=== PATIENT | male | born 1975 | race Caucasian/White ===

== ENCOUNTER → 2021-08-14 08:33 | Outpatient (BNVA) | payer OTHER, SELFPAY | PROVIDERS: Family Provider Family Medicine; PCP Family Medicine; Visit Provider Nurse Practitioner Family | DX: N41.1 Chronic prostatitis (principal) | CPT/HCPCS: 81003; 87086 ==

== ENCOUNTER → 2021-10-15 15:11 | Outpatient (BNVA) | payer OTHER, SELFPAY | PROVIDERS: Family Provider Family Medicine; PCP Family Medicine; Visit Provider Urology | DX: N41.1 Chronic prostatitis (principal) | CPT/HCPCS: 81003 ==

== ENCOUNTER → 2022-01-28 14:40 | Outpatient (BNVA) | payer OTHER, SELFPAY | PROVIDERS: Family Provider Family Medicine; PCP Family Medicine; Visit Provider Urology | DX: N41.1 Chronic prostatitis (principal) | CPT/HCPCS: 81003 ==

== ENCOUNTER 2022-12-04 16:42 | Emergency (ER) | payer OTHER, SELFPAY ==
[2022-12-04 16:52] VITALS: BP 125/69; PULSE 79; RESP 16; TEMP 36.6; O2SAT 99; BMI 30.2
--- NOTE | 2022-12-04 17:40 | ED_ITS ---
HPI - Dizziness General: Chief Complaint: Dizziness Stated Complaint: dizziness Time Seen by Provider: 12/04/22 16:46 History of Present Illness: HPI Narrative: 47-year-old male reports around 11:00 he started having vertigo. Room spinning to the right. It stopped as long as he held still and closed his eyes. However soon as he started to move, he was at risk of having onset of severe vertigo again. As long as his eyes were closed he can do normal fine motor movements. He has had a little bit of sinus issues recently but otherwise has not been sick. No ear pain headache, or focal neurologic problems. He did take ciprofloxacin a few times last week which is a standing order for prostatitis symptoms. No other new medications. Associated symptoms: Denies chest pain, chills, headache(s), syncope or vomiting Associated neuro symptoms: Deny numbness in extremities Review of Systems General: Reports: 10 or more systems reviewed and unremarkable except in HPI and below Const: Denies: fever(s), chills or body aches ENMT: Denies: throat pain Card: Denies: chest pain, edema or syncope Resp: Denies: dyspnea or productive cough GI: Denies: abdominal pain, vomiting or diarrhea : Denies: flank pain, dysuria or urinary frequency Musc: Denies: neck pain, back pain, extremity pain or extremity swelling Skin/Breast: Denies: rash or erythema Neuro: Denies: headache(s), numbness in extremities, weakness in extremities or lack of coordination PFSH ED PFSH: Medical History Chronic prostatitis Family History Mother COPD (chronic obstructive pulmonary disease) Lung disease Father CAD (coronary artery disease) Diabetes Social History Smoking and tobacco status: former smoker Alcohol intake: current Alcohol intake frequency: few times a week Substance/Drug Use: unknown Adopted: No Caregiver/support person: No Lives independently: No Household members: spouse Marital status: Current occupational status: employed Physical Exam Const: COMMON NORMALS: no limitations, alert and well nourished EXAM LI MITATIONS: no altered mental status HENMT: COMMON NORMALS: normocephalic, atraumatic, external ears normal, EAC's normal and TM's normal bilaterally HEAD & SCALP: normocephalic and atraumatic EXTERNAL EAR: Yes external ears normal EXTERNAL AUDITORY CANAL: EAC's normal TYMPANIC MEMBRANE: TM's normal bilaterally MOUTH: no muffled voice Neck/C-Spine: COMMON NORMALS: no JVD GENERAL: Yes normal visual inspection and Yes trachea midline Resp: COMMON NORMALS: normal respiratory effort, No use of accessory muscles and clear to auscultation bilaterally AUSCULTATION: clear to auscultation bilaterally Cardio: COMMON NORMALS: no JVD, regular rate and regular rhythm RATE: regular rate RHYTHM: regular rhythm GI: COMMON NORMALS: Soft to palpation and non-tender PALPATION: Yes Soft to palpation and No Guarding due to palpation present (GI) Extremity: COMMON NORMALS: normal to inspection Neuro: COMMON NORMALS: moves all extremities, no focal motor deficits and no sensory deficits noted SENSORIUM/ORIENTATION: Yes alert SPEECH: speech normal OTHER: Patient has directional nystagmus when he looks all the way to the right with a fast beating component to the right. No other abnormalities of the extraocular movements. Pupils are equal round and reactive to light. A hints exam was performed. It was suggestive of a peripheral vertigo. No features of central vertigo Psych: COMMON NORMALS: mental status grossly normal, Normal thought process present, cooperative, normal affect and speech normal SPEECH: Yes normal speech THOUGHT PROCESS: Normal thought process present Skin: COMMON NORMALS: no rashes or lesions noted, turgor normal and no jaundice GENERAL SKIN EXAM: no rashes or lesions noted and turgor normal Course Vital Signs: Vital signs: Vital Signs Temperature 97.9 F 12/04/22 16:52 Pulse Rate 83 12/04/22 17:46 Respiratory Rate 18 12/04/22 17:46 Blood Pressure 120/77 12/04/22 17:46 Pulse Oximetry 99 12/04/22 17:46 Oxygen Delivery Me thod Room Air 12/04/22 17:46 MDM - Dizziness Medical Decision Making Patient has features of peripheral vertigo, positional. I did Pam maneuvers and patient experienced improvement after the first 1. This would be suggestive of issues in the semicircular canal/s. I ordered him scopolamine and meclizine as well as a dose of prednisone. I taught him how to do Pam maneuver and he is going to repeated in the room with his . Denies RFs for CVA including no htn, hld, smoking, dm. No features of central vertigo, infection, trauma, or metabolic emergency. Patient will be discharged with meclizine, short prednisone burst, and scopolamine patches. Patient reexamined and is doing much better. I discussed the difference between peripheral and central vertigo. We discussed how to do stroke checks at home in the event that his symptoms recur. Prescriptions have been signed. No radiology studies performed this visit Discharge Plan Discharge Patient Disposition: Home Clinical Impression: Benign paroxysmal positional vertigo Condition: Stable Prescriptions: New prednisone 20 mg tablet 20 mg PO DAILY 5 Days Qty: 10 0RF promethazine 25 mg tablet 25 mg PO Q6H PRN (Reason: nausea and vomiting, vertigo) Qty: 14 0RF scopolamine base 1 mg over 3 days patch 3 day 1 patch transdermal Q3D PRN (Reason: vertigo) Qty: 4 0RF meclizine 25 mg tablet 25 mg PO TID PRN (Reason: vertigo) Qty: 20 0RF No Action quercetin 500 mg capsule PO .PRN alprazolam 0.5 mg tablet PO hydrocortisone acetate 25 mg suppository 25 mg [place] BID Qty: 12 0RF ciprofloxacin HCl 500 mg tablet 500 mg PO BID Qty: 60 3RF Discharge Orders: Discharge ED (Routine); Ordered 12/04/22 Ordered By: Clifton Guaman Referrals: Toni Farris, [Primary Care Provider] - 4-7 days Patient Instructions: Vertigo (ED), Benign Paroxysmal Positional Vertigo (ED) Activity Restrictions/Additional Instructions: Today you have been diagnosed with: peripheral vertigo Additional information has been provided as handouts, please take the time to read and understand this information. It is very important that you follow up with a Doctor as discussed during your visit today, the information to contact your doctor is included in your discharge instructions. Failure to adhere to your follow up instructions may lead to severe disability, injury, or so please make sure to keep your appointments. Please return to the Emergency Department immediately and without fail if you experience any new, worsening, or concerning problems such as:_ chest pain, shortness of breath, headache or body pain, fever, lightheadedness, weakness, numbness, or any other concerning symptoms. If taking a substance like an opiate or other strong pain medication, please do not drive or operate heavy machinery while under the effects of this medicine. Thank you for allowing us to participate in your care today. Coding Level of Care Code ED Learning Specialist for Nikos Brantley
[2022-12-04 17:42] VITALS: BP 120/77; PULSE 68
[2022-12-04] MEDS: scopolamine 1.5 Patch 1 PATCH TRANSDERMA (17:42)
[2022-12-04] MEDS: predniSONE 20 mg Tablet PO (17:42)
[2022-12-04] MEDS: meclizine 25 mg tablet 50 MG PO (17:42)
[2022-12-04 17:46] VITALS: BP 120/77; PULSE 83; RESP 18; O2SAT 99
== END 2022-12-04 18:06 | disposition home or self-care (01) ==
PROVIDERS: Emergency Provider Emergency Medicine; PCP Family Medicine
DX: H81.10 Benign paroxysmal vertigo, unspecified ear (principal); Z87.891 Personal history of nicotine dependence
CPT/HCPCS: 99283; J7512; J8597

== ENCOUNTER 2023-11-14 22:36 | Emergency (ER) | payer OTHER, SELFPAY ==
[2023-11-14 22:43] VITALS: BP 160/85; PULSE 79; RESP 18; TEMP 36.5; O2SAT 99; BMI 29.3
--- NOTE | 2023-11-15 02:53 | ED_ITS ---
HPI - Animal Bite General: Chief Complaint: Animal Bite Stated Complaint: racoon bite Time Seen by Provider: 11/15/23 02:32 History of Present Illness: 48-year-old male gentleman presenting 36 hours or so after raccoon bite. He notes that the raccoon seemed friendly, and he threw some food down, but got too close, and the raccoon bit him in the left leg. He has not experienced increased pain or swelling at the site. No streaking. No fever. He has the raccoon in a cage can be observed, however, he knows the incidence of rabies in the coon population in this area, and is quite concerned. Related Data Home Medications Medication Instructions Recorded Confirmed quercetin 500 mg capsule mg PO .PRN 01/28/22 08/12/22 Previous Rx's Medication Instructions Recorded hydrocortisone acetate 25 mg 25 mg [place] BID #12 ea 12/16/21 rectal suppository meclizine 25 mg tablet 25 mg PO TID PRN vertigo #20 tabs 12/04/22 promethazine 25 mg tablet 25 mg PO Q6H PRN nausea and 12/04/22 vomiting, vertigo #14 tabs scopolamine base 1 mg over 3 days 1 patch transdermal Q3D PRN 12/04/22 transdermal patch vertigo #4 ea amoxicillin 875 mg-potassium 1 tab PO BID sinus infection #20 04/14/23 clavulanate 125 mg tablet tabs alprazolam 0.5 mg tablet 0.5 mg PO BID stress/anxiety #60 07/27/23 tabs ciprofloxacin HCl 500 mg tablet 500 mg PO BID #60 tabs 07/27/23 Allergies Allergy/AdvReac Type Severity Reaction Status Date / Time sulfamethoxazole Allergy NA Verified 11/14/23 22:48 [From Bactrim] trimethoprim [From Bactrim] Allergy NA Verified 11/14/23 22:48 PFSH ED PFSH: Medical History Chronic prostatitis Family History Mother COPD (chronic obstructive pulmonary disease) Lung disease Father CAD (coronary artery disease) Diabetes Social History Smoking and tobacco/nicotine status: former use of tobacco/nicotine Alcohol intake: current Alcohol intake frequency: few times a week Substance/Drug Use: unknown Adopted: No Caregiver/support person: No Lives independently: No Household members: spouse Marital status: Current occupational status: employed Physical Exam Const: COMMON NORMALS: no acute distress GENERAL APPEARANCE: cooperative; not ill appearing and not frail appearing HENMT: COMMON NORMALS: normocephalic, atraumatic and Normal external nose present HEAD & SCALP: normocephalic and atraumatic FACE & SINUS: normal facial exam and face symmetric NOSE: Normal external nose present Eye: COMMON NORMALS: Equal, round and reactive pupils present and EOMs intact bilaterally PUPIL: Yes Equal, round and reactive pupils present Neck/C-Spine: GENERAL: Yes trachea midline Chest: CHEST: Yes Symmetrical chest wall rise Resp: COMMON NORMALS: normal respiratory effort, No retractions, No use of accessory muscles and clear to auscultation bilaterally AUSCULTATION: clear to auscultation bilaterally Cardio: COMMON NORMALS: regular rate and regular rhythm RATE: regular rate RHYTHM: regular rhythm GI: COMMON NORMALS: Normal to inspection, nondistended, normoactive bowel sounds present Extremity: COMMON NORMALS: no pedal edema NARRATIVE EXTREMITY EXAM: Small puncture wounds to the left lateral lower leg. No surrounding edema, streaking, or significant redness. Neuro: ARNULFO COMA SCALE: document GCS findings Arn[place]fo coma scale eye opening: Spontaneous Arn[place]fo coma scale verbal response: Orientated [place] coma scale motor response: Obey commands Arnulfo coma scale total score: 15 SENSORY EXAM: Yes extremities (intact) Psych: COMMON NORMALS: speech normal SPEECH: Yes normal speech Skin: COMMON NORMALS: no rashes or lesions noted GENERAL SKIN EXAM: no rashes or lesions noted Course Vital Signs: Vital signs: Vital Signs Temperature 97.7 F 11/14/23 22:43 Pulse Rate 59 L 11/15/23 03:55 Respiratory Rate 14 11/15/23 03:55 Blood Pressure 129/77 11/15/23 03:55 Pulse Oximetry 97 11/15/23 03:55 Oxygen Delivery Me thod Room Air 11/15/23 03:55 MDM - Animal Bite Medical Decision Making High risk exposure to an animal bite, raccoon, and the patient. He does not show signs of cellulitis or infection in the area. He will get rabies Ig, as well as his first rabies vaccination. Schedule is given to him for follow-up vaccinations. This is appropriate given incidence of carrier populations of raccoons in the area. He tolerated well. He will be allowed discharge. No radiology studies performed this visit Discharge Plan Discharge Patient Disposition: Home Clinical Impression: Bite by animal Condition: Stable Prescriptions: No Action quercetin 500 mg capsule PO .PRN amoxicillin-pot clavulanate 875-125 mg tablet 1 tab PO BID Qty: 20 0RF hydrocortisone acetate 25 mg suppository 25 mg [place] BID Qty: 12 0RF ciprofloxacin HCl 500 mg tablet 500 mg PO BID Qty: 60 3RF alprazolam 0.5 mg tablet 0.5 mg PO BID Qty: 60 1RF promethazine 25 mg tablet 25 mg PO Q6H PRN (Reason: nausea and vomiting, vertigo) Qty: 14 0RF scopolamine base 1 mg over 3 days patch 3 day 1 patch transdermal Q3D PRN (Reason: vertigo) Qty: 4 0RF meclizine 25 mg tablet 25 mg PO TID PRN (Reason: vertigo) Qty: 20 0RF Discharge Orders: Discharge ED (Routine); Ordered 11/15/23 Ordered By: Waqas Durbin Referrals: Toni Farris, [Primary Care Provider] - 1-3 days Patient Instructions: Rabies Vaccine (By injection), Opioid Safety, Pain Management Activity Restrictions/Additional Instructions: Call the health department Thursday to schedule your follow-up rabies vaccinations. The next one should be Thursday. Confirm with them. Follow-up with your doctor this week. Return for increased swelling, redness, pain at the site of your bite. Return for any fevers as well. Return for any other concerning symptoms. Coding Level of Care Code ED Poleyard Supervisor for Nikos Brantley
[2023-11-15] MEDS: rabies IG 300 unit/mL SDV 1 mL 1800 UNIT IM (03:44)
[2023-11-15] MEDS: rabies vaccine 2.5 unit SDV IM (03:46)
[2023-11-15 03:55] VITALS: BP 129/77; PULSE 59; RESP 14; O2SAT 97
== END 2023-11-15 04:04 | disposition home or self-care (01) ==
PROVIDERS: Emergency Provider Emergency Medicine; PCP Family Medicine
DX: S81.852A Open bite, left lower leg, initial encounter (principal); W55.51XA Bitten by raccoon, initial encounter; Z87.891 Personal history of nicotine dependence; Z20.3 Contact with and (suspected) exposure to rabies; Z29.14 Encounter for prophylactic rabies immune globulin; Z23 Encounter for immunization
CPT/HCPCS: 90375; 90471; 90675; 96372; 99283

== ENCOUNTER 2023-11-30 08:00 | Oncology outpatient (recurring) (ONCR) | payer OTHER, SELFPAY ==
[2023-11-18] MEDS: rabies vaccine 2.5 unit SDV IM (15:42)
[2023-11-23] MEDS: rabies vaccine 2.5 unit SDV IM (07:55)
[2023-11-23 07:58] VITALS: BP 130/90; PULSE 63
[2023-11-30] MEDS: rabies vaccine 2.5 unit SDV IM (07:58)
== END 2023-12-14 23:59 | disposition home or self-care (01) ==
PROVIDERS: PCP Family Medicine; Visit Provider Emergency Medicine
DX: Z53.9 Procedure and treatment not carried out, unspecified reason; Z20.3 Contact with and (suspected) exposure to rabies; Z23 Encounter for immunization; S81.852A Open bite, left lower leg, initial encounter; W55.51XA Bitten by raccoon, initial encounter
CPT/HCPCS: 90471; 90675